=== PATIENT | male | born 1995 ===

== ENCOUNTER 2017-12-01 02:07 | Inpatient (IN) | payer MEDICAID ==
[2017-12-01 03:46] LABS: BASO % 0.2 % (0.0-2.0); EOS % 0.1 % (0.0-4.0); HEMOGLOBIN 14.4 g/dL (12.0-18.0); LYMPH # 1.2 K/uL (1.0-4.3); LYMPH % 15.9 % (20.0-40.0); MEAN CELL VOLUME 89.5 fL (80.0-94.0); MEAN CORPUSCULAR HEMOGLOBIN 31.2 pg (27.0-31.0); MEAN CORPUSCULAR HGB CONC 34.9 g/dL (33.0-37.0); MONO # 0.7 K/uL (0.0-0.8); MONO % 8.9 % (0.0-10.0); NEUT # 5.5 K/uL (1.8-7.0); NEUT % 74.9 % (50.0-75.0); NRBC % 0.1 % (0.0-2.0); RBC 4.61 Mil/uL (4.40-5.90); RED CELL DISTRIBUTION WIDTH 12.6 % (11.5-14.5); WHITE BLOOD COUNT 7.4 K/uL (4.8-10.8)
[2017-12-01 03:57] LABS: ALB/GLOB RATIO 1.4 (1.0-2.1); ALBUMIN 4.2 g/dL (3.5-5.0); ALT/SGPT 27 U/L (21-72); AST/SGOT 21 U/L (17-59); BLOOD UREA NITROGEN 13 mg/dL (9-20); CALCIUM 8.6 mg/dl (8.6-10.4); GFR AFRICAN-AMERICAN > 60; GFR NON-AFRICAN AMERICAN > 60
--- NOTE | 2017-12-01 04:19 | C.PDOC ---
History Of Present Illness <Rere Schaefer - Last Filed: 12/01/17 04:16> <Stephanie Morgan - Last Filed: 12/01/17 05:44> 22 year old male with PMHx of schizophrenia presents to the ED for evaluation of auditory hallucinations. Patient's family states he is compliant with his medications. Patient denies SI/HI, fever, chill, nausea, vomit, diarrhea. ( Rere Schaefer) History Per: Patient History/Exam Limitations: no limitations Onset/Duration Of Symptoms: Days Current Symptoms Are (Timing): Still Present Suicide/Self Injury Attempted (Context): None Modifying Factor(s): None Associated Symptoms: Paranoia. denies: Depression, Suicidal Thoughts, Suicidal Plan Involuntary Hold By: None Recent travel outside of the [place]: No Additional History Per: Patient, EMS <Rere Schaefer - Last Filed: 12/01/17 04:16> <Stephanie Morgan - Last Filed: 12/01/17 05:44> Time Seen by Provider: 12/01/17 02:32 Chief Complaint (Nursing): Psychiatric Evaluation Past Medical History Reviewed: Historical Data, Nursing Documentation, Vital Signs - Medical History PMH: Schizophrenia Denies: Diabetes, Hepatitis, HIV, HTN, Seizures, Sexually Transmitted Disease Surgical History: No Surg Hx Family History: States: Unknown Family Hx - Social History Hx Alcohol Use: No Hx Substance Use: No - Immunization History Hx Tetanus Toxoid Vaccination: No Hx Influenza Vaccination: No Hx Pneumococcal Vaccination: No <Rere Schaefer - Last Filed: 12/01/17 04:16> Vital Signs: Last Vital Signs Temp 98.1 F 12/01/17 05:43 Pulse 94 H 12/01/17 05:43 Resp 18 12/01/17 05:43 BP 148/88 12/01/17 05:43 Pulse Ox 98 12/01/17 05:43 Review Of Systems Constitutional: Negative for: Fever, Chills Cardiovascular: Negative for: Chest Pain, Palpitations Respiratory: Negative for: Cough, Shortness of Breath Gastrointestinal: Negative for: Nausea, Vomiting, Abdominal Pain Skin: Negative for: Rash Neurological: Negative for: Weakness, Numbness <Rere Schaefer - Last Filed: 12/01/17 04:16> Physical Exam - Physical Exam Appears: Non-toxic, No Acute Distress Skin: Normal Color, Warm, Dry Head: Atraumatic, Normacephalic Eye(s): bilateral: Normal Inspection Nose: No Discharge, No Deformity Oral Mucosa: Moist Neck: Normal ROM, Supple Chest: Symmetrical Cardiovascular: Rhythm Regular, No Murmur Respiratory: Normal Breath Sounds, No Rales, No Rhonchi, No Wheezing Gastrointestinal/Abdominal: Soft, No Tenderness, No Guarding, No Rebound Extremity: Normal ROM, No Tenderness, No Deformity, No Swelling <Rere Schaefer - Last Filed: 12/01/17 04:16> ED Course And Treatment - Laboratory Results Result Diagrams: 12/01/17 03:38 12/01/17 03:38 O2 Sat by Pulse Oximetry: 97 (On RA) Pulse Ox Interpretation: Normal Progress Note: Plan: -labs. -UA. Crisis evaluation done by worker for possible admission. <Rere Schaefer - Last Filed: 12/01/17 04:16> - Laboratory Results Result Diagrams: 12/01/17 03:38 12/01/17 03:38 <Stephanie Morgan - Last Filed: 12/01/17 05:44> Disposition <Rere Schaefer - Last Filed: 12/01/17 04:16> - Disposition Disposition Time: 05:44 <Stephanie Morgan - Last Filed: 12/01/17 05:44> - Disposition Disposition: HOSPITALIZED Condition: FAIR Forms: [employer] (Kazakh) - Clinical Impression Clinical Impression: Schizophrenia - PA / ENCHILADA MAKER / Resident Statement MD/DO has reviewed & agrees with the documentation as recorded. - Scribe Statement The provider has reviewed the documentation as recorded by the Scribe <Rere Schaefer - Last Filed: 12/01/17 04:16> <Stephanie Morgan - Last Filed: 12/01/17 05:44> - Scribe Statement Smith Max All medical record entries made by the Scribe were at my direction and personally dictated by me. I have reviewed the chart and agree that the record accurately reflects my personal performance of the history, physical exam, medical decision making, and the department course for this patient. I have also personally directed, reviewed, and agree with the discharge instructions and disposition. (Rere Schaefer)
[2017-12-01 04:36] LABS: BARBITURATES, UR NEGATIVE (NEGATIVE); BENZODIAZEPINES, UR NEGATIVE (NEGATIVE); OPIATES, UR NEGATIVE (NEGATIVE); PHENCYCLIDINE, UR NEGATIVE (NEGATIVE)
[2017-12-01 04:41] LABS: SPERM URINE RARE /hpf; SQUAMOUS EPITHIAL < 1 /hpf (0-5); URINE BACTERIA OCC (<OCC); URINE BILIRUBIN NEGATIVE (NEGATIVE); URINE BLOOD NEGATIVE (NEGATIVE); URINE CLARITY Hazy (Clear); URINE COLOR Amber (YELLOW); URINE GLUCOSE (UA) NORMAL (Normal); URINE LEUKOCYTE ESTERASE NEG Leu/uL (Negative); URINE NITRATE NEGATIVE (NEGATIVE); URINE PROTEIN 2+ mg/dL (NEGATIVE)
[2017-12-01 05:22] LABS: GRANULAR CAST 4 /lpf (0-1)
--- NOTE | 2017-12-01 08:00 | PCM.BM ---
<MiroslavaagustínMaceya - Last Filed: 12/01/17 07:59> Treatment assets and liabiliti Patient Assests: self-reliant, ADL independent, physically healthy, good support system, negotiates basic needs, cognitively intact - Milieu Protocol Maintain good personal hygiene: daily Encourage regular showers, other Remind patient to perform daily oral care, other Assist patient to perform ADL's (prn) Conduct patient checks and document Observation sheet: Q15 minutes Maintain personal safety: every shift Monitor environment for contraband/sharps , other Educate patient to report safety concerns to staff (prn) Medication safety: Monitor for expected outcome, potential side effects: every shift, Assess barriers to learning: every shift, Assess readiness for medication education: every shift <Chelo Mojica - Last Filed: 12/04/17 21:23> - Diagnosis (1) Schizophrenia Status: Acute Interventions: 12/04/17 21:23 * Assess/adjust medications daily and /or as needed * See patient on an individual basis 7x/week to assess status of hallucinations * Discuss risks, benefits, side effects and alternatives of medications * <Shilpa Antoine - Last Filed: 12/05/17 11:56> Family Contact Family involvement: Family/SO is involved Family contact: Patient agrees to contact Family contact name: Dionna Barr-mother Family contacted how many times per week?: 2 - Goals for Treatment Patient goals for treatment: no comment Patient's family/SO goals for treatment: "He needs to be stable before he's discharged." Discharge/Continuing Care - Education Needs Education Needs: Patient Medication, Patient Coping Skills - Discharge Discharge Criteria: Tolerates medication w/o severe side effects, Reduction of target symptoms Discharge to:: Home, With Family - Treatment Team Participation Discussed with Family/SO: Yes ("I agree with this plan.") Was Patient/Family/SO present at Treatment Team Meeting: No (no comment)
--- NOTE | 2017-12-01 20:37 | PCM.PSYCH ---
Initial Psychiatric Evaluation - Initial Psychiatric Evaluation Type of Admission: Voluntary Legal Status: Capacity Chief Complaint (in patient's own words): "People are monitoring my activities and wants to harm my family members." Patient's Reaction to Hospitalization: I'm safe History of Present Illness and Precipitating Events: Pt. is a 22 y/o male that came to ED accompanied by his mother and sister yesterday. Pt admission for decompensation of auditory hallucinations/ Schizophrenia. Pt. reported that he stop taking his medication and f/u with the psychiatrist at [facility] by himself because he was feeling better. pt. reports that he has not been sleeping for the last week and stays up in his room talking and laughing to himself. Pt. reports that he has been drinking a lot of energy and protein drinks since he started to go to the gym and feeling better. Pt also reported worsening of AH, Paranoid delusions that people are monitoring his activities and people are entering his house and wants to harm and hurt his family members. He stated that he was scared of them and wants to protect them. Pt. reports that he is enrolled at [facility], but missed his last appointment because he has been busy with school. Pt. is enrolled in a culinary program. Pt. reports that prior to that he finished an auto glass technician program and the school promised him that they were going to help him find a job. Pt. reports that he had his first hospitalization last year at [facility]. Pt. reports that he had a bad breakup three years ago. Pt. denies any drug use. Pt. reports that sometimes he feels that people are looking at him funny or that they are making comment about him. Per chart review Collateral history: Pt.'s mother reports that for the last week ; Pt. has not been sleeping at night and talks and laugh to himself Legal History: Pt. was arrested once before he wanted to work and the program refused to place pt. in a job. pt. became aggressive and was arrested by the police. Current Medications: Active Medications Generic Name Dose Route Start Last Admin Trade Name Freq PRN Reason Stop Dose Admin Hydroxyzine HCl 25 mg 12/01/17 08:07 Atarax PO TID PRN Anxiety Lamotrigine 25 mg 12/01/17 10:00 12/01/17 17:28 Lamictal PO 25 mg BID BARON Administration Pneumococcal Polyvalent Vaccine 0.5 ml 12/04/17 06:57 Pneumovax 23 Vaccine IM 12/04/17 06:58 .ONCE ONE Risperidone 1 mg 12/01/17 10:00 12/01/17 10:55 Risperdal Tab PO 1 mg DAILY BARON Administration Trazodone HCl 50 mg 12/01/17 08:06 Desyrel PO HS PRN Insomnia Past Psychiatric History - Past Psychiatric History Previous Treatment History: Inpatient Prior Professional Help: [facility] OPD Prior Psychiatric Treatment: INPATIENT ADMISSION At [facility] hospital: [facility] [place] Nature of Treatment: 2017 Explanation of prior treatment: MEDICATION MANAGEMENT History of Abuse: DENIED History of ETOH/Drug Use: IN THE PAST HE WAS SMOKING BLUNT History of Family Illness: DENIED Pertinent Medical Hx (Current Medical&Sleep Prob, Allergies): Allergies Allergy/AdvReac Type Severity Reaction Status Date / Time No Known Allergies Allergy Verified 12/01/17 02:30 Lamictal 12/01/17 Risperdal 12/01/17 NKDA Review of Systems - Review of Systems All systems: reviewed and no additional remarkable complaints except (PSYCH) - Constitutional Constitutional: UN - EENT Eyes: UNREMARKABLE Ears: UNREMARKABLE Nose/Mouth/Throat: UNREMARKABLE - Cardiovascular Cardiovascular: UNREMARKABLE - Respiratory Respiratory: UNREMARKABLE - Gastrointestinal Gastrointestinal: UNREMARKABLE - Genitourinary Genitourinary: UNREMARKABLE - Psychiatric Psychiatric: As Per HPI - Endocrine Endocrine: UNREMARKABLE - Hematologic/Lymphatic Hematologic: UNREMARKABLE Mental Status Examination - Personal Presentation Personal Presentation: Looks stated age Additional comments: CALM AND COOPERATIVE, LYING IN THE BED - Affect Affect: Blunted - Motor Activity Motor Activity: Calm - Reliability in Providing Information Reliability in Providing Information: Good - Speech Speech: Organized, Coherent - Mood Mood: Anxious - Formal Thought Process Formal Thought Process: Hallucinations, Delusions, Paranoia - Hallucinations/Delusions Hallucinations: Auditory - Obsessions/Compulsions Obsessions: None Compulsions: None - Cognitive Functions Orientation: Person, Place, Situation, Time Sensorium: Alert Attention/Concentration: Attentive Abstract Thinking: Trout Estimate of Intelligence: Average Judgement: Imparied, as evidence by: Poor judgement, Imparied, as evidence by: Lack of insight into illness - Strength & Assets Inventory Strength & Assets Inventory: Family support, Education, Skills, Interests/ hobbies, Cooperative - Limitations Limitations: Other (POOR INSIGHT) DSM 5 DX - DSM 5 DSM 5 Diagnosis: SCHIZOPHRENIA - Recommended/Plan of Treatment Treatment Recommendations and Plan of Treatment: START RISPERDAL 1 MG O BID START LAMICTAL 25 MG PO bid therapy in milieu individual and group therapy monitor vitals Prognosis: fair with the compliance with meds and treatment Discharge Plan and Discharge Criteria: please see SW note
--- NOTE | 2017-12-02 16:52 | PCM.PYCHPN ---
Psychiatric Progress Note - Psychiatric Progress Note Patient seen today, length of contact: 15 minutes Patient Chief Complaint: "I'm okay" Problems Identified/Issues Discussed: Pt was seen and evaluated. Nurse input received that he believes that his mother and niece are imposter. Pt stated that he is feeling okay. He minimized his symptoms. He reported improvement in his AH. however, he appeared internally preoccupied and responding to stimuli. He appeared paranoid. DSM 5 Symptoms Update: Schizphrenia Medication Change: Yes (increaase risperdal) Medical Record Reviewed: Yes Mental Status Examination - Cognitive Function Orientation: Person, Place, Situation, Time Memory: Intact Attention: Poor Concentration: Poor Association: Loose Fund of Knowledge: WNL Decription of patient's judgement and insights: poor/poor - Mood Mood: Anxious - Affect Affect: Blunted - Speech Speech: Soft - Formal Thought Process Formal Thought Process: Hallucinations, Delusions, Paranoia - Suicidal Ideation Suicidal Ideation: No Plan: denied - Homicidal Ideation Homicidal Ideation: No Plan: denied Goal/Treatment Plan - Goal/Treatment Plan Need for Continued Stay: Discharge may exacerbated symptoms Progress Toward Problem(s) and Goals/Treatment Plan: increase RISPERDAL 1 MG BID for psychosis Continue LAMICTAL 25 MG PO bid therapy in milieu individual and group therapy monitor vitals Estimated Date of D/C: 12/07/17 - Smoking Cessation Smoking Cessation Initiated: Yes
--- NOTE | 2017-12-03 10:21 | PCM.PYCHPN ---
Psychiatric Progress Note - Psychiatric Progress Note Patient seen today, length of contact: 15 minutes Patient Chief Complaint: I am fine.' Problems Identified/Issues Discussed: Patient seen and evaluated, chart reviewed and discussed with the nurse. Patient remained disorganized and internally preoccupied. He still reports of hearing voices and appears paranoid and delusional. He is responding to internal stimuli and as per the staff, he spent whole night talking to himself. He reports irritability and anxiety. Patient remained isolated, confined and withdrawn. Patient is compliant with medications and denies any side effects. Symptoms are improving but need more time to stabilize. Support and psychoeducation given. Medication Change: Yes (increaase risperdal, start trileptal) Medical Record Reviewed: Yes Mental Status Examination - Cognitive Function Orientation: Person, Place, Situation, Time Memory: Intact Attention: Poor Concentration: Poor Association: Loose Fund of Knowledge: WNL - Mood Mood: Anxious - Affect Affect: Blunted - Speech Speech: Soft - Formal Thought Process Formal Thought Process: Hallucinations, Delusions, Paranoia, Loosening of associations - Suicidal Ideation Suicidal Ideation: No - Homicidal Ideation Homicidal Ideation: No Goal/Treatment Plan - Goal/Treatment Plan Need for Continued Stay: Discharge may exacerbated symptoms Progress Toward Problem(s) and Goals/Treatment Plan: Schizophrenia paranoid type continuous CBT Psychoeducation Supportive therapy, group therapy, individual therapy Risperdal 2 mg PO BID Neurontin 100 mg by mouth 3 times a day Trazodone 50 mg by mouth daily at bedtime D/C Lamictal Start Trileptal 300 mg PO BID Estimated Date of D/C: 12/07/17 - Smoking Cessation Smoking Cessation Initiated: No
[2017-12-03] MEDS: Aluminum Hydroxide/Magnesium Hydroxide Susp (30 mL) PO PRN (18:36)
--- NOTE | 2017-12-04 10:23 | PCM.PYCHPN ---
Psychiatric Progress Note - Psychiatric Progress Note Patient seen today, length of contact: 15 minutes Patient Chief Complaint: I am fine.' Problems Identified/Issues Discussed: Patient seen and evaluated, chart reviewed and discussed with the nurse. As per the staff, he still reports of hearing voices and appears paranoid and delusional. Patient remained disorganized and internally preoccupied. He is responding to internal stimuli and as per the staff, he spent whole night talking to himself. He reports irritability and anxiety. Patient remained isolated, confined and withdrawn. Patient is compliant with medications and denies any side effects. Symptoms are improving but need more time to stabilize. Support and psychoeducation given. Medication Change: Yes (increaase risperdal, start trileptal) Medical Record Reviewed: Yes Mental Status Examination - Cognitive Function Orientation: Person, Place, Situation, Time Memory: Intact Attention: Poor Concentration: Poor Association: Loose Fund of Knowledge: WNL - Mood Mood: Anxious - Affect Affect: Blunted - Speech Speech: Soft - Formal Thought Process Formal Thought Process: Hallucinations, Delusions, Paranoia, Loosening of associations - Suicidal Ideation Suicidal Ideation: No - Homicidal Ideation Homicidal Ideation: No Goal/Treatment Plan - Goal/Treatment Plan Need for Continued Stay: Discharge may exacerbated symptoms Progress Toward Problem(s) and Goals/Treatment Plan: Schizophrenia paranoid type continuous CBT Psychoeducation Supportive therapy, group therapy, individual therapy Risperdal 2 mg PO BID Neurontin 100 mg by mouth 3 times a day Trazodone 50 mg by mouth daily at bedtime D/C Lamictal Start Trileptal 300 mg PO BID Estimated Date of D/C: 12/07/17
[2017-12-04] MEDS ORDERED: Pneumococcal 23-Valent Vaccine IM ONE (10:57)
[2017-12-04] MEDS ORDERED: Influenza Vaccine 60 mcg/0.5 mL SYR (4YR UP) IM ONE (10:57)
[2017-12-04] MEDS: Aluminum Hydroxide/Magnesium Hydroxide Susp (30 mL) PO PRN (21:23)
--- NOTE | 2017-12-05 11:40 | PCM.PYCHPN ---
Psychiatric Progress Note - Psychiatric Progress Note Patient seen today, length of contact: 15 minutes Patient Chief Complaint: "I'm good." Problems Identified/Issues Discussed: Patient was seen and examined at bedside, chart was reviewed and discussed with staff. Patient denies any complaints. He reports that he is doing well and denies hearing voices, auditory hallucinations. He reports that he is taking his medications even though thats not what I normally take at home. Patient appears disheveled and maintains intense eye contact during encounter. The patient responds to questions in a short abrupt and seemingly rehearsed manner. His thoughts are goal directed. He reports his mood has good. His affect is blunted. He is seen punching at the air in the hallway and responding to internal stimuli. Patient is compliant with medications and denies any side effects. Symptoms are improving but need more time to stabilize. Support and psychoeducation given. Medication Change: Yes (increaase risperdal, start trileptal) Medical Record Reviewed: Yes Mental Status Examination - Cognitive Function Orientation: Person, Place, Situation, Time Memory: Intact Attention: Poor Concentration: Poor Association: Loose Fund of Knowledge: WNL - Mood Mood: Anxious - Affect Affect: Blunted - Speech Speech: Soft - Language Language: Word Retrieval - Formal Thought Process Formal Thought Process: Hallucinations, Delusions, Paranoia, Loosening of associations - Suicidal Ideation Suicidal Ideation: No - Homicidal Ideation Homicidal Ideation: No Goal/Treatment Plan - Goal/Treatment Plan Need for Continued Stay: Discharge may exacerbated symptoms, Severe functional impairment Progress Toward Problem(s) and Goals/Treatment Plan: Schizophrenia paranoid type continuous CBT Psychoeducation Supportive therapy, group therapy, individual therapy Risperdal 2 mg PO BID Neurontin 100 mg by mouth 3 times a day Trazodone 50 mg by mouth daily at bedtime D/C Lamictal Start Trileptal 300 mg PO BID Estimated Date of D/C: 12/07/17
--- NOTE | 2017-12-06 12:28 | PCM.PSYCH ---
Initial Psychiatric Evaluation - Initial Psychiatric Evaluation Type of Admission: Voluntary Legal Status: Capacity Chief Complaint (in patient's own words): "I'm fine" Patient's Reaction to Hospitalization: Patient was seen and examined at bedside, chart was reviewed and discussed with staff. Patient reports that he is doing fine and denies any complaints. He denies hearing voices and visual hallucinations. When asked if he remembers why he came to the hospital he said "because of the incarn[place], imposters are hurting my family members and they are trying to reincarnate themselves into my family members to hurt me." Patient appears disheveled and maintains eye contact during encounter. The patient responds to questions in a short manner. His thoughts are goal directed. He reports his mood has good. His affect is blunted. He is still observed to be responding to internal stimuli. Current Medications: Active Medications Generic Name Dose Route Start Last Admin Trade Name Freq PRN Reason Stop Dose Admin Al Hydrox/Mg Hydrox/Simethicone 30 ml 12/03/17 18:17 12/04/17 21:23 Maalox 30 Ml PO 30 ml Q6 PRN Administration Indigestion / Heartburn Hydroxyzine HCl 25 mg 12/01/17 08:07 12/05/17 10:24 Atarax PO 25 mg TID PRN Administration Anxiety Levetiracetam 250 mg 12/04/17 10:00 12/06/17 10:04 Keppra PO 250 mg BID BARON Administration Risperidone 2 mg 12/04/17 10:15 12/06/17 10:04 Risperdal Tab PO 2 mg BID BARON Administration Trazodone HCl 50 mg 12/01/17 08:06 12/04/17 21:23 Desyrel PO 50 mg HS PRN Administration Insomnia Past Psychiatric History - Past Psychiatric History Previous Treatment History: Inpatient Prior Professional Help: CRC OPD Prior Psychiatric Treatment: INPATIENT ADMISS[place] At [facility] [place] [facility] [place] Treatment: 2016 Explanation of prior treatment: MEDICATION MANAGEMENT Pertinent Medical Hx (Current Medical&Sleep Prob, Allergies): Allergies Allergy/AdvReac Type Severity Reaction Status Date / Time No Known Allergies Allergy Verified 12/01/17 02:30 Lamictal 12/01/17 Risperdal 12/01/17 Review of Systems - Neurological Neurological: UNREMARKABLE - Psychiatric Psychiatric: Paranoia. absent: Auditory Hallucinations, Visual Hallucinations Mental Status Examination - Personal Presentation Personal Presentation: Looks stated age - Affect Affect: Constricted, Blunted - Motor Activity Motor Activity: Calm - Reliability in Providing Information Reliability in Providing Information: Fair - Speech Speech: Disorganized - Mood Mood: Neutral - Formal Thought Process Formal Thought Process: Delusions, Paranoia - Hallucinations/Delusions Delusions: Persecution - Obsessions/Compulsions Obsessions: None Compulsions: None - Cognitive Functions Orientation: Person, Place, Situation, Time Sensorium: Alert Attention/Concentration: Easily distracted Estimate of Intelligence: Average Judgement: Imparied, as evidence by: Poor judgement, Imparied, as evidence by: Lack of insight into illness Memory: Recent intact, as evidence by: Ability to recall events of the day, Remote intact, as evidenced by: Abilit to recall sig. life events - Strength & Assets Inventory Strength & Assets Inventory: Family support DSM 5 DX - DSM 5 DSM 5 Diagnosis: Schizophrenia - Recommended/Plan of Treatment Treatment Recommendations and Plan of Treatment: Schizophrenia paranoid type continuous CBT Psychoeducation Supportive therapy, group therapy, individual therapy Risperdal 2 mg PO BID Neurontin 100 mg by mouth 3 times a day Trazodone 50 mg by mouth daily at bedtime D/C Lamictal Start Trileptal 300 mg PO BID - Smoking Cessation Smoking Cessation Initiated: No Reason for not providing: pt does not smoke
--- NOTE | 2017-12-06 12:33 | PCM.PYCHPN ---
Psychiatric Progress Note - Psychiatric Progress Note Patient seen today, length of contact: 15 minutes Patient Chief Complaint: "I'm fine" Problems Identified/Issues Discussed: Patient was seen and examined at bedside, chart was reviewed and discussed with staff. Patient reports some improvement in the voices and improvement in the voices and visual hallucinations. When asked if he remembers why he came to the hospital he said "because of the incarnation, imposters are hurting my family members and they are trying to reincarnate themselves into my family members to hurt me." Patient appears disheveled and maintains eye contact during encounter. The patient responds to questions in a short manner. His thoughts are goal directed. He reports his mood has good. His affect is blunted. He is still observed to be responding to internal stimuli. Patient is compliant with medications and denies any side effects. Symptoms are improving but need more time to stabilize. Support and psychoeducation given. Medication Change: Yes (increase risperdal) Medical Record Reviewed: Yes Mental Status Examination - Cognitive Function Orientation: Person, Place, Situation, Time Memory: Intact Attention: Poor Concentration: Poor Association: Loose Fund of Knowledge: WNL - Mood Mood: Anxious - Affect Affect: Blunted - Speech Speech: Soft - Language Language: Word Retrieval - Formal Thought Process Formal Thought Process: Hallucinations, Delusions, Paranoia, Loosening of associations - Suicidal Ideation Suicidal Ideation: No - Homicidal Ideation Homicidal Ideation: No Goal/Treatment Plan - Goal/Treatment Plan Need for Continued Stay: Discharge may exacerbated symptoms, Severe functional impairment Progress Toward Problem(s) and Goals/Treatment Plan: Schizophrenia paranoid type continuous CBT Psychoeducation Supportive therapy, group therapy, individual therapy Risperdal 4 mg PO qhs Trazodone 50 mg by mouth daily at bedtime Keppra 250 mg PO BID Estimated Date of D/C: 12/07/17 - Smoking Cessation Smoking Cessation Initiated: No Reason for not providing: pt does not smoke
[2017-12-06] MEDS ORDERED: Simethicone 80 mg Chewtab PO PRN (20:18)
[2017-12-07] MEDS ORDERED: Simethicone 80 mg Chewtab PO SCH
--- NOTE | 2017-12-08 09:02 | PCM.PYCHPN ---
Psychiatric Progress Note - Psychiatric Progress Note Patient seen today, length of contact: 15 minutes Patient Chief Complaint: "I'm fine" Problems Identified/Issues Discussed: Patient was seen and examined at bedside, chart was reviewed and discussed with staff. As per the staff pt started coming out of his room. Patient reports some improvement in the voices and improvement in the voices and visual hallucinations. He appears kempt and he started taking care of his hygiene. His thoughts are goal directed. He reports his mood is good. His affect is blunted. He appears less paranoid and less delusional compared to before. Patient is compliant with medications and denies any side effects. Symptoms are improving but need more time to stabilize. Support and psychoeducation given. Medication Change: Yes (increase risperdal, start trileptal) Medical Record Reviewed: Yes Mental Status Examination - Cognitive Function Orientation: Person, Place, Situation, Time Memory: Intact Attention: WNL Concentration: Poor Association: Loose Fund of Knowledge: WNL - Mood Mood: Anxious - Affect Affect: Blunted - Speech Speech: Soft - Language Language: Word Retrieval - Formal Thought Process Formal Thought Process: Hallucinations, Paranoia - Suicidal Ideation Suicidal Ideation: No - Homicidal Ideation Homicidal Ideation: No Goal/Treatment Plan - Goal/Treatment Plan Need for Continued Stay: Discharge may exacerbated symptoms, Severe functional impairment Progress Toward Problem(s) and Goals/Treatment Plan: Schizophrenia paranoid type continuous CBT Psychoeducation Supportive therapy, group therapy, individual therapy Risperdal 4 mg PO QHS Risperdal 2 mg PO QAM Cogentn 1 mg PO BID Trazodone 50 mg by mouth daily at bedtime Keppra 250 mg PO BID Estimated Date of D/C: 12/07/17 - Smoking Cessation Smoking Cessation Initiated: No
--- NOTE | 2017-12-08 19:18 | PCM.PYCHPN ---
Psychiatric Progress Note - Psychiatric Progress Note Patient seen today, length of contact: 15 minutes Patient Chief Complaint: I'm feeling much better. Problems Identified/Issues Discussed: Patient seen, chart reviewed, case discussed with the staff. Issues related to illness and treatment were discussed with the patient. Reported compliant with treatment with no adverse affects. Tolerating treatment very well. Patient reported feeling better with the treatment. But still appeared internally preoccupied, paranoid, flat affect. Patient still believes that some people who they come back to him requiring the shapes off his family members including his mother and sister. Patient reported that when those impostors come in front of him his heart starts racing and he knows from there that there impostors but when he is real family members calm his heart beats normally. At the time of evaluation, patient was awake alert oriented 3, no suicidal ideations or homicidal ideations. Patient needs more time for stabilization. Aftercare discussed with the patient. Medical Problems: None reported Diagnostic Results: Reviewed DSM 5 Symptoms Update: Some improvement with treatment Medication Change: No Medical Record Reviewed: Yes Mental Status Examination - Cognitive Function Orientation: Person, Place, Situation, Time Memory: Intact Attention: WNL Concentration: WNL Association: [facility] Fund of Knowledge: [facility] Decription of patient's judgement and insights: Fair - Mood Mood: Anxious - Affect Affect: Flat - Speech Speech: Soft - Formal Thought Process Formal Thought Process: Paranoia, Loosening of associations, Flight of ideas - Suicidal Ideation Suicidal Ideation: No - Homicidal Ideation Homicidal Ideation: No Goal/Treatment Plan - Goal/Treatment Plan Need for Continued Stay: Remain at risks for inpatient hospitalization, Discharge may exacerbated symptoms, Severe functional impairment Progress Toward Problem(s) and Goals/Treatment Plan: Patient education Supportive therapy Continue treatment as before We will go back to [facility] after discharge from the hospital for follow-up care Estimated Date of D/C: 12/07/17 - Smoking Cessation Smoking Cessation Initiated: No
[2017-12-09] MEDS: Aluminum Hydroxide/Magnesium Hydroxide Susp (30 mL) PO PRN (18:38)
--- NOTE | 2017-12-09 18:41 | PCM.PYCHPN ---
Psychiatric Progress Note - Psychiatric Progress Note Patient seen today, length of contact: 15 minutes Patient Chief Complaint: I'm feeling much better. Problems Identified/Issues Discussed: Patient seen, chart reviewed, case discussed with the staff. Issues related to illness and treatment were discussed with the patient. Reported compliant with treatment with no adverse affects. Tolerating treatment very well. Patient reported feeling better with the treatment. But still appeared internally preoccupied, paranoid, flat affect. Patient still believes that some people who they come back to him requiring the shapes off his family members including his mother and sister. Patient reported that when those impostors come in front of him his heart starts racing and he knows from there that these are impostors but when they're is real family members, he is calm and his heart beats normally. At the time of evaluation, patient was awake alert oriented 3, no suicidal ideations or homicidal ideations. Patient needs more time for stabilization. Aftercare discussed with the patient. Medical Problems: None reported Diagnostic Results: Reviewed DSM 5 Symptoms Update: Some improvement with treatment Medication Change: No Medical Record Reviewed: Yes Mental Status Examination - Cognitive Function Orientation: Person, Place, Situation, Time Memory: Intact Attention: WNL Concentration: WNL Association: WN Fund of Knowledge: [facility] Decription of patient's judgement and insights: Fair - Mood Mood: Anxious - Affect Affect: Flat - Speech Speech: Soft - Language Language: Word Retrieval - Formal Thought Process Formal Thought Process: Paranoia, Loosening of associations, Flight of ideas - Suicidal Ideation Suicidal Ideation: No - Homicidal Ideation Homicidal Ideation: No Goal/Treatment Plan - Goal/Treatment Plan Need for Continued Stay: Remain at risks for inpatient hospitalization, Discharge may exacerbated symptoms, Severe functional impairment Progress Toward Problem(s) and Goals/Treatment Plan: Patient education Supportive therapy Continue treatment as before We will go back to [facility] after discharge from the hospital for follow-up care Estimated Date of D/C: 12/10/17 - Smoking Cessation Smoking Cessation Initiated: No
--- NOTE | 2017-12-11 10:35 | PCM.PYCHPN ---
Psychiatric Progress Note - Psychiatric Progress Note Patient seen today, length of contact: 15 minutes Patient Chief Complaint: "I'm fine" Problems Identified/Issues Discussed: Patient was seen and examined at bedside, chart was reviewed and discussed with staff. As per the staff pt started coming out of his room. Patient reports some improvement in the voices and improvement in the voices and visual hallucinations. He appears kempt and he started taking care of his hygiene. His thoughts are goal directed. He reports his mood is good. His affect is blunted. He appears less paranoid and less delusional compared to before. Patient is compliant with medications and denies any side effects. Symptoms are improving but need more time to stabilize. Support and psychoeducation given. Medication Change: Yes (stop seroquel, start prolixin) Medical Record Reviewed: Yes Mental Status Examination - Cognitive Function Orientation: Person, Place, Situation, Time Memory: Intact Attention: WNL Concentration: Poor Association: Loose Fund of Knowledge: Poor - Mood Mood: Anxious - Affect Affect: Flat - Speech Speech: Soft - Language Language: Word Retrieval - Formal Thought Process Formal Thought Process: Delusions, Paranoia, Loosening of associations, Flight of ideas - Suicidal Ideation Suicidal Ideation: No - Homicidal Ideation Homicidal Ideation: No Goal/Treatment Plan - Goal/Treatment Plan Need for Continued Stay: Remain at risks for inpatient hospitalization, Discharge may exacerbated symptoms, Severe functional impairment Progress Toward Problem(s) and Goals/Treatment Plan: Schizophrenia paranoid type continuous CBT Psychoeducation Supportive therapy, group therapy, individual therapy Risperdal 4 mg PO QHS Risperdal 2 mg PO QAM Cogentn 1 mg PO BID Trazodone 50 mg by mouth daily at bedtime Keppra 250 mg PO BID Seroquel 50 mg PO BID Increase Prolixin 10 mg PO BID Estimated Date of D/C: 12/10/17
--- NOTE | 2017-12-12 10:01 | PCM.PYCHPN ---
Psychiatric Progress Note - Psychiatric Progress Note Patient seen today, length of contact: 15 minutes Patient Chief Complaint: "I'm fine" Problems Identified/Issues Discussed: Patient was seen and examined at bedside, chart was reviewed and discussed with staff. As per the staff pt started coming out of his room. Patient reports some improvement in the voices and improvement in the voices and visual hallucinations. He appears kempt and he started taking care of his hygiene. His thoughts are goal directed. He reports his mood is good. His affect is blunted. He appears less paranoid and less delusional compared to before. Patient is compliant with medications and denies any side effects. Symptoms are improving but need more time to stabilize. Support and psychoeducation given. Medication Change: Yes (increase prolixin) Medical Record Reviewed: Yes Mental Status Examination - Cognitive Function Orientation: Person, Place, Situation, Time Memory: Intact Attention: WNL Concentration: Poor Association: Loose Fund of Knowledge: Poor - Mood Mood: Anxious - Affect Affect: Flat - Speech Speech: Soft - Language Language: Word Retrieval - Formal Thought Process Formal Thought Process: Delusions, Paranoia, Loosening of associations, Flight of ideas - Suicidal Ideation Suicidal Ideation: No - Homicidal Ideation Homicidal Ideation: No Goal/Treatment Plan - Goal/Treatment Plan Need for Continued Stay: Remain at risks for inpatient hospitalization, Discharge may exacerbated symptoms, Severe functional impairment Progress Toward Problem(s) and Goals/Treatment Plan: Schizophrenia paranoid type continuous CBT Psychoeducation Supportive therapy, group therapy, individual therapy Risperdal 4 mg PO QHS Risperdal 2 mg PO QAM Cogentn 1 mg PO BID Trazodone 50 mg by mouth daily at bedtime Keppra 250 mg PO BID Seroquel 50 mg PO BID Estimated Date of D/C: 12/10/17
--- NOTE | 2017-12-12 10:16 | PCM.BM ---
<Shilpa Antoine - Last Filed: 12/12/17 10:16> Treatment assets and liabiliti Patient Assests: self-reliant, ADL independent, physically healthy, good support system, negotiates basic needs, cognitively intact - Milieu Protocol Maintain good personal hygiene: daily Encourage regular showers, other Remind patient to perform daily oral care, other Assist patient to perform ADL's (prn) Conduct patient checks and document Observation sheet: Q15 minutes Maintain personal safety: every shift Monitor environment for contraband/sharps , other Educate patient to report safety concerns to staff (prn) Medication safety: Monitor for expected outcome, potential side effects: every shift, Assess barriers to learning: every shift, Assess readiness for medication education: every shift Milieu Narrative: Schizophrenia paranoid type continuous CBT Psychoeducation Supportive therapy, group therapy, individual therapy Risperdal 4 mg PO QHS Risperdal 2 mg PO QAM Cogentn 1 mg PO BID Trazodone 50 mg by mouth daily at bedtime Keppra 250 mg PO BID Seroquel 50 mg PO BID Increase Prolixin 10 mg PO BID Family Contact Family involvement: Family/SO is involved Family contact: Patient agrees to contact Family contact name: Dionna Barr-mother Family contacted how many times per week?: 2 - Goals for Treatment Patient goals for treatment: no comment Patient's family/SO goals for treatment: "He needs to be stable before he's discharged." Discharge/Continuing Care - Education Needs Education Needs: Patient Medication, Patient Coping Skills - Discharge Discharge Criteria: Tolerates medication w/o severe side effects, Reduction of target symptoms Discharge to:: Home, With Family - Treatment Team Participation Patient/Family/SO Statement: Schizophrenia paranoid type continuous CBT Psychoeducation Supportive therapy, group therapy, individual therapy Risperdal 4 mg PO QHS Risperdal 2 mg PO QAM Cogentn 1 mg PO BID Trazodone 50 mg by mouth daily at bedtime Keppra 250 mg PO BID Seroquel 50 mg PO BID Increase Prolixin 10 mg PO BID Discussed with Family/SO: Yes ("I agree with this plan.") Was Patient/Family/SO present at Treatment Team Meeting: No (no comment) Treatment Plan Review - Discharge / Continuing Care Discharge to:: Home, With Family Behavioral Health Services: Partial hospital Health Needs: Medications/Rx, Alcohol/Drug treatment <Chelo Mojica - Last Filed: 12/12/17 13:48> - Diagnosis (1) Schizophrenia Status: Acute Interventions: 12/12/17 13:48 * Assess/adjust medications daily and /or as needed * See patient on an individual basis 7x/week to assess status of hallucinations * Discuss risks, benefits, side effects and alternatives of medications * <Jennifer Suero - Last Filed: 12/12/17 14:07> - Milieu Protocol Maintain good personal hygiene: every shift Encourage regular showers, every shift Remind patient to perform daily oral care, every shift Assist patient to perform ADL's Maintain personal safety: every shift Educate patient to report safety concerns to staff, every shift Monitor environment for contraband/sharps Medication safety: Monitor for expected outcome, potential side effects: every shift, Assess barriers to learning: every shift, Assess readiness for medication education: every shift Treatment Plan Review - Problem Paranoid Date Initiated: 12/01/17 Progress toward outcomes: unchanged
[2017-12-12 16:02] LABS: URINE BILIRUBIN NEGATIVE (NEGATIVE); URINE BLOOD NEGATIVE (NEGATIVE); URINE CLARITY Clear (Clear); URINE COLOR Colorless (YELLOW); URINE GLUCOSE (UA) NORMAL (Normal); URINE LEUKOCYTE ESTERASE NEG Leu/uL (Negative); URINE NITRATE NEGATIVE (NEGATIVE); URINE PROTEIN NEGATIVE (NEGATIVE); URINE UROBILINOGEN NORMAL mg/dL (0.2-1.0)
[2017-12-12 17:21] LABS: HEMOGLOBIN 14.1 g/dL (12.0-18.0); MEAN CELL VOLUME 90.3 fL (80.0-94.0); MEAN CORPUSCULAR HEMOGLOBIN 31.4 pg (27.0-31.0); MEAN CORPUSCULAR HGB CONC 34.7 g/dL (33.0-37.0); MEAN PLATELET VOLUME 8.8 fL (7.2-11.7); RBC 4.49 Mil/uL (4.40-5.90); RED CELL DISTRIBUTION WIDTH 12.7 % (11.5-14.5); WHITE BLOOD COUNT 6.3 K/uL (4.8-10.8)
[2017-12-12 17:40] LABS: BLOOD UREA NITROGEN 14 mg/dL (9-20); GFR AFRICAN-AMERICAN > 60; GFR NON-AFRICAN AMERICAN > 60
--- NOTE | 2017-12-13 13:43 | PCM.PYCHPN ---
Psychiatric Progress Note - Psychiatric Progress Note Patient seen today, length of contact: 16 minutes Patient Chief Complaint: "I'm fine and want to go back to school" Problems Identified/Issues Discussed: Patient was seen and examined at bedside, chart was reviewed and discussed with staff. As per the staff pt started coming out of his room. Patient denying hearing voices and seeing visual hallucinations. He appears kempt and he continues taking care of his hygiene. His thoughts are goal directed. He reports his mood is good. His affect is blunted. He appears less paranoid and less delusional compared to before. He was seen sitting in the common room with his head down in his arms covered by a towel and listening to the radio. When asked about who he has been seen talking to, he states that he has a lot of memories that he reflects on. When asked to clarify which memories, he states "memories of high school and playing football, when times were good". Patient is compliant with medications and denies any side effects. Symptoms are improving but need more time to stabilize. Support and psychoeducation given. Medication Change: Yes (increase prolixin) Medical Record Reviewed: Yes Mental Status Examination - Cognitive Function Orientation: Person, Place, Situation, Time Memory: Intact Attention: WNL Concentration: Poor Association: Loose Fund of Knowledge: Poor - Mood Mood: Anxious - Affect Affect: Blunted, Flat - Speech Speech: Soft - Language Language: Word Retrieval - Formal Thought Process Formal Thought Process: Delusions, Paranoia, Loosening of associations, Flight of ideas - Suicidal Ideation Suicidal Ideation: No - Homicidal Ideation Homicidal Ideation: No Goal/Treatment Plan - Goal/Treatment Plan Need for Continued Stay: Remain at risks for inpatient hospitalization, Discharge may exacerbated symptoms, Severe functional impairment Progress Toward Problem(s) and Goals/Treatment Plan: Schizophrenia paranoid type continuous CBT Psychoeducation Supportive therapy, group therapy, individual therapy Risperdal 4 mg PO QHS Risperdal 2 mg PO QAM Cogentn 1 mg PO BID Trazodone 50 mg by mouth daily at bedtime Keppra 250 mg PO BID Seroquel 50 mg PO BID Increase Prolixin 10 mg PO BID Estimated Date of D/C: 12/17/17 - Smoking Cessation Smoking Cessation Initiated: No
--- NOTE | 2017-12-13 15:48 | RAD ---
HISTORY: Rule out active disease COMPARISON: No prior. FINDINGS: LUNGS: No active pulmonary disease. PLEURA: No significant pleural effusion identified, no pneumothorax apparent. CARDIOVASCULAR: Normal. OSSEOUS STRUCTURES: No significant abnormalities. VISUALIZED UPPER ABDOMEN: Normal. OTHER FINDINGS: None. IMPRESSION: No active disease.
--- NOTE | 2017-12-14 11:00 | PCM.PYCHPN ---
Psychiatric Progress Note - Psychiatric Progress Note Patient seen today, length of contact: 16 minutes Patient Chief Complaint: "I'm fine" Problems Identified/Issues Discussed: Patient was seen and examined at bedside, chart was reviewed and discussed with staff. As per the staff pt started coming out of his room. Patient denying hearing voices and seeing visual hallucinations. He appears kempt and he continues taking care of his hygiene. His thoughts are goal directed. He reports his mood is good. His affect is blunted. He was seen laughing to himself in the hallway. He was then seen sitting in the common room playing games with the other guests. Patient is compliant with medications and denies any side effects. Symptoms are improving but need more time to stabilize. Support and psychoeducation given. Medication Change: Yes (increase prolixin) Medical Record Reviewed: Yes Mental Status Examination - Cognitive Function Orientation: Person, Place, Situation, Time Memory: Intact Attention: WNL Concentration: Poor Association: Loose Fund of Knowledge: Poor - Mood Mood: Anxious - Affect Affect: Blunted, Flat - Speech Speech: Soft - Language Language: Word Retrieval - Formal Thought Process Formal Thought Process: Delusions, Paranoia, Loosening of associations, Flight of ideas - Suicidal Ideation Suicidal Ideation: No - Homicidal Ideation Homicidal Ideation: No Goal/Treatment Plan - Goal/Treatment Plan Need for Continued Stay: Remain at risks for inpatient hospitalization, Discharge may exacerbated symptoms, Severe functional impairment Progress Toward Problem(s) and Goals/Treatment Plan: Schizophrenia paranoid type continuous CBT Psychoeducation Supportive therapy, group therapy, individual therapy Risperdal 4 mg PO QHS Risperdal 2 mg PO QAM Cogentn 1 mg PO BID Trazodone 50 mg by mouth daily at bedtime Keppra 250 mg PO BID Seroquel 50 mg PO BID Increase Prolixin 10 mg PO BID Estimated Date of D/C: 12/17/17
[2017-12-16 05:57] VITALS: O2SAT 99
--- NOTE | 2017-12-17 10:26 | PCM.PYCHPN ---
Psychiatric Progress Note - Psychiatric Progress Note Patient seen today, length of contact: 16 minutes Patient Chief Complaint: "I'm fine" Problems Identified/Issues Discussed: Patient was seen and examined at bedside, chart was reviewed and discussed with staff. As per the staff pt started coming out of his room. Patient denying hearing voices and seeing visual hallucinations. He appears kempt and he continues taking care of his hygiene. His thoughts are goal directed. He reports his mood is good. His affect is blunted. He was seen laughing to himself in the hallway which he tries to hide when engaged during one of these episodes. He was then seen sitting in the common room playing games with the other guests. Patient is compliant with medications and denies any side effects. Symptoms are improving but need more time to stabilize. Support and psychoeducation given. Medication Change: Yes (increase prolixin) Medical Record Reviewed: Yes Mental Status Examination - Cognitive Function Orientation: Person, Place, Situation, Time Memory: Intact Attention: WNL Concentration: Poor Association: Loose Fund of Knowledge: Poor - Mood Mood: Anxious - Affect Affect: Blunted, Flat - Speech Speech: Soft - Language Language: Word Retrieval - Formal Thought Process Formal Thought Process: Delusions, Paranoia, Loosening of associations, Flight of ideas - Suicidal Ideation Suicidal Ideation: No - Homicidal Ideation Homicidal Ideation: No Goal/Treatment Plan - Goal/Treatment Plan Need for Continued Stay: Remain at risks for inpatient hospitalization, Discharge may exacerbated symptoms, Severe functional impairment Progress Toward Problem(s) and Goals/Treatment Plan: Schizophrenia paranoid type continuous CBT Psychoeducation Supportive therapy, group therapy, individual therapy Risperdal 4 mg PO QHS Risperdal 2 mg PO QAM Cogentn 1 mg PO BID Trazodone 50 mg by mouth daily at bedtime Keppra 250 mg PO BID Seroquel 50 mg PO BID Increase Prolixin 10 mg PO BID Estimated Date of D/C: 12/17/17
[2017-12-18 09:38] VITALS: TEMP 97.9
[2017-12-19 17:43] VITALS: BP 126/87; PULSE 74; RESP 17
--- NOTE | 2017-12-20 10:49 | PCM.PYCHDC ---
Mental Status Examination - Mental Status Examination Orientation: Person, Place, Situation, Time Memory: Intact Mood: Anxious Affect: Broad, Blunted Speech: Soft Attention: Poor Concentration: Poor Association: Loose Fund of Knowledge: Poor Formal Thought Process: Hallucinations, Delusions, Paranoia, Loosening of associations Description of patient's judgement and insight: impaired Psychotic Thoughts and Behaviors: Reports AVH Suicidal Ideation: No Current Homicidal Ideation?: No Discharge Summary - Discharge Note Psychiatric History (includes Medical, Family, Personal Hx): 2017 Consultations:: List each consultation separately and include: 1. Reason for request. 2. Findings. 3. Follow-up Summary of Hospital Course include:: 1. Description of specific treatment plan utilized for patients during their course of treatmen. 2. Summarize the time- course for resolution of acute symptoms and/or regressed behaviors. 3. Describe issues identified and worked on during hospitalization. 4. Describe medication utilized. 5. Describe medical problems identified and treated. 6. Reassessment of suicide risk - Diagnosis (1) Schizophrenia Status: Acute - Final Diagnosis (DSM 5) Condition upon Discharge: GOOD Disposition: DISCHARGE TO PSYCH HOSPITAL Follow-up Treatment Plan: Schizophrenia paranoid type continuous CBT Psychoeducation Supportive therapy, group therapy, individual therapy Risperdal 4 mg PO QHS Risperdal 2 mg PO QAM Cogentn 1 mg PO BID Trazodone 50 mg by mouth daily at bedtime Keppra 250 mg PO BID Seroquel 50 mg PO BID Increase Prolixin 10 mg PO BID Prescriptions/Medication Reconciliation: Benztropine [Cogentin] 1 mg PO BID #60 tab fluPHENAZine [Prolixin] 10 mg PO BID #60 tab levETIRAcetam [Keppra] 250 mg PO BID #60 tab risperiDONE [RisperDAL Tab] 2 mg PO DAILY #30 tab risperiDONE [RisperDAL Tab] 4 mg PO QPM #30 tab traZODone [Desyrel] 50 mg PO HS #30 tab
== END 2017-12-20 01:00 | DRG 430 ==
LOC: C.ER 02:07 → C.9E 05:34 → C.5E 06:01
PROVIDERS: ADMIT Psychiatry & Neurology Psychiatry; ATTEND Psychiatry & Neurology Psychiatry
DX: F20.0 Paranoid schizophrenia (principal)

== ENCOUNTER 2018-01-03 08:06 | Emergency (ER) | payer MEDICAID ==
[2018-01-03 08:38] VITALS: BMI 24.3
[2018-01-03 09:15] LABS: BASO % 0.7 % (0.0-2.0); EOS % 0.1 % (0.0-4.0); HEMOGLOBIN 15.1 g/dL (12.0-18.0); LYMPH # 1.4 K/uL (1.0-4.3); LYMPH % 22.5 % (20.0-40.0); MEAN CELL VOLUME 89.4 fL (80.0-94.0); MEAN CORPUSCULAR HEMOGLOBIN 31.2 pg (27.0-31.0); MEAN CORPUSCULAR HGB CONC 34.9 g/dL (33.0-37.0); MEAN PLATELET VOLUME 8.5 fL (7.2-11.7); MONO # 0.5 K/uL (0.0-0.8); MONO % 7.8 % (0.0-10.0); NEUT # 4.4 K/uL (1.8-7.0); NEUT % 68.9 % (50.0-75.0); RBC 4.83 Mil/uL (4.40-5.90); RED CELL DISTRIBUTION WIDTH 12.3 % (11.5-14.5); WHITE BLOOD COUNT 6.3 K/uL (4.8-10.8)
--- NOTE | 2018-01-03 09:41 | C.PDOC ---
History Of Present Illness <Rosa Perdomo - Last Filed: 01/03/18 18:45> <Penny Means - Last Filed: 01/04/18 09:58> 22 y/o male with history of Schizophrenia brought to ED by BLS after mother called for patient "doesn't feel right". As per mother patient had been missing since last night and arrived home this morning. Mother states patient is not compliant with medications. At ED patient is awake and alert with racing thoughts. No other complaints at this time. (Rosa Perdomo) History Per: EMS, Family History/Exam Limitations: no limitations Onset/Duration Of Symptoms: Days Current Symptoms Are (Timing): Still Present Suicide/Self Injury Attempted (Context): None <Rosa Perdomo - Last Filed: 01/03/18 18:45> <Penny Means - Last Filed: 01/04/18 09:58> Time Seen by Provider: 01/03/18 08:09 Chief Complaint (Nursing): Psychiatric Evaluation Past Medical History Reviewed: Historical Data, Nursing Documentation, Vital Signs - Medical History PMH: Schizophrenia ("as per previous triage") Surgical History: No Surg Hx Family History: States: No Known Family Hx - Social History Hx Alcohol Use: No Hx Substance Use: No - Immunization History Hx Tetanus Toxoid Vaccination: No Hx Influenza Vaccination: No Hx Pneumococcal Vaccination: No <Rosa Perdomo - Last Filed: 01/03/18 18:45> Vital Signs: Last Vital Signs Temp 98.1 F 01/04/18 07:40 Pulse 87 01/04/18 07:40 Resp 16 01/04/18 07:40 BP 113/71 01/04/18 07:40 Pulse Ox 100 01/04/18 07:40 Review Of Systems Constitutional: Negative for: Fever, Chills Cardiovascular: Negative for: Chest Pain Respiratory: Negative for: Shortness of Breath Gastrointestinal: Negative for: Nausea, Vomiting Psych: Negative for: Anxiety, Depression, Suicidal ideation <Rosa Perdomo - Last Filed: 01/03/18 18:45> Physical Exam - Physical Exam Appears: Non-toxic, No Acute Distress Skin: Warm, Dry, No Rash Head: Atraumatic, Normacephalic Eye(s): bilateral: Normal Inspection Oral Mucosa: Moist Neck: Normal ROM, Supple Cardiovascular: Rhythm Regular Respiratory: Normal Breath Sounds, No Accessory Muscle Use, No Rales, No Rhonchi , No Wheezing Gastrointestinal/Abdominal: Soft, No Tenderness, No Guarding, No Rebound Extremity: Normal ROM, Capillary Refill (<2 seconds) Neurological/Psych: Oriented x3, Normal Speech, Normal Cognition <Rosa Perdomo - Last Filed: 01/03/18 18:45> ED Course And Treatment - Laboratory Results Result Diagrams: 01/03/18 09:09 01/03/18 09:09 Lab Interpretation: No Acute Changes O2 Sat by Pulse Oximetry: 100 (RA) Pulse Ox Interpretation: Normal Progress Note: Blood work review and appears normal. Pt is medically cleared for PES evaluation at 10:00. At 10:35, pt was seen by corsis worker, case discussed with [id number] , recommend [facility] screening now. At 18:30, pt remained stable during the Ed Observation. Pt was sign out to for further OBS, await [facility] screener,dispo. <Rosa Perdomo - Last Filed: 01/03/18 18:45> - Laboratory Results Result Diagrams: 01/03/18 09:09 01/03/18 09:09 <Penny Means - Last Filed: 01/04/18 09:58> Progress <Rosa Perdomo - Last Filed: 01/03/18 18:45> <Penny Means - Last Filed: 01/04/18 09:58> - Re-Evaluation Re-evaluation Note: 01/04/18 09:58 D/W CRISIS: PT ACCEPTED FOR TRANSFER TO [facility]. PENDING BED AVAIL. (Penny Means) Disposition - Disposition Disposition Time: 18:44 <Rosa Perdomo - Last Filed: 01/03/18 18:45> <Penny Means - Last Filed: 01/04/18 09:58> - Disposition Condition: STABLE Forms: [facility] (German) - Clinical Impression Clinical Impression: Schizophrenia - PA / AUTO RENTAL CLERK / Resident Statement MD/DO has reviewed & agrees with the documentation as recorded. - Scribe Statement The provider has reviewed the documentation as recorded by the Scribe <Rosa Perdomo - Last Filed: 01/03/18 18:45> <Penny Means - Last Filed: 01/04/18 09:58> - Scribe Statement Lianna Lopez All medical record entries made by the Scribe were at my direction and personally dictated by me. I have reviewed the chart and agree that the record accurately reflects my personal performance of the history, physical exam, medical decision making, and the department course for this patient. I have also personally directed, reviewed, and agree with the discharge instructions and disposition. (Rosa Perdomo) Physician Patient Turnover Patient Signed Over To: Stephanie Morgan Handoff Comments: [facility] SCREENER, DAKOTA CABRERA <Rosa Perdomo - Last Filed: 01/03/18 18:45>
[2018-01-03 10:38] LABS: ALB/GLOB RATIO 1.2 (1.0-2.1); ALBUMIN 4.7 g/dL (3.5-5.0); ALT/SGPT 30 U/L (21-72); AST/SGOT 50 U/L (17-59); BLOOD UREA NITROGEN 12 mg/dL (9-20); CALCIUM 9.5 mg/dl (8.6-10.4); GFR AFRICAN-AMERICAN > 60; GFR NON-AFRICAN AMERICAN > 60
[2018-01-03 12:18] LABS: SQUAMOUS EPITHIAL < 1 /hpf (0-5); URINE AMORPHOUS SEDIMENT RARE /ul (<OCC); URINE BILIRUBIN NEGATIVE (NEGATIVE); URINE BLOOD NEGATIVE (NEGATIVE); URINE CLARITY Hazy (Clear); URINE COLOR Yellow (YELLOW); URINE GLUCOSE (UA) NORMAL (Normal); URINE LEUKOCYTE ESTERASE NEG Leu/uL (Negative); URINE PROTEIN NEGATIVE (NEGATIVE)
[2018-01-03 12:26] LABS: BARBITURATES, UR NEGATIVE (NEGATIVE); BENZODIAZEPINES, UR NEGATIVE (NEGATIVE); OPIATES, UR NEGATIVE (NEGATIVE); PHENCYCLIDINE, UR NEGATIVE (NEGATIVE)
[2018-01-04 11:14] VITALS: RESP 18; TEMP 98; O2SAT 98
--- NOTE | 2018-01-04 11:27 | PCM.PSYCH ---
Initial Psychiatric Evaluation - Initial Psychiatric Evaluation Type of Admission: Voluntary Legal Status: Capacity Chief Complaint (in patient's own words): I am fine.' History of Present Illness and Precipitating Events: Pt is a 22 yrs old HM, who lives with his mother, was presented in the ED with both EMS and Police with reports of patient acting bizarre, paranoid, disorganized and erratic. Pt according to collateral reports from his mother, Dr. Cintron and [facility] was recently discharged from both [facility] and [facility] for similar presenting symptoms. Pt was originally admitted voluntary to [facility] and while on the unit refused all medications and psychiatric interventions. Pt was screened on the unit and transferred to [facility] on December 20, 2017 as patient required a higher and more restrictive level of care not offered on a voluntary basis. Pt at time of contact was disorganized and could not respond to the evaluation inquiries in a logical manner; much of this assessment was completed with collateral information from mental health providers and patient's mother. Pt is severely decompensated, unpredictable and not able to function at his normal mental capacity. Pt furthermore is refusing contacts with his mother in the ED and has made disparaging remarks to both PES and ED staff. Past Psychiatric History - Past Psychiatric History Previous Treatment History: Inpatient Pertinent Medical Hx (Current Medical&Sleep Prob, Allergies): Allergies Allergy/AdvReac Type Severity Reaction Status Date / Time No Known Allergies Allergy Verified 12/01/17 02:30 Risperidone 3 mg PO BID 01/03/18 Review of Systems - Review of Systems All systems: reviewed and no additional remarkable complaints except - Psychiatric Psychiatric: Anxiety, Auditory Hallucinations, Mood Swings, Paranoia, Visual Hallucinations Mental Status Examination - Personal Presentation Personal Presentation: Looks stated age - Affect Affect: Broad - Motor Activity Motor Activity: Psychomotor Agitation - Reliability in Providing Information Reliability in Providing Information: Poor, due to alteration in thoughts, Poor , due to altered mood - Speech Speech: Disorganized - Mood Mood: Depressed, Anxious - Formal Thought Process Formal Thought Process: Hallucinations, Delusions, Paranoia, Loosening of associations, Flight of ideas - Hallucinations/Delusions Hallucinations: Auditory Delusions: Persecution - Obsessions/Compulsions Obsessions: No Compulsions: No - Cognitive Functions Orientation: Person, Place, Situation, Time Sensorium: Alert Attention/Concentration: Attentive Abstract Thinking: [place] Estimate of Intelligence: Below average Judgement: Imparied, as evidence by: Poor judgement, Imparied, as evidence by: Lack of insight into illness - Risk Risk: Suicidal, Homicidal, Diminished functioning - Strength & Assets Inventory Strength & Assets Inventory: Family support DSM 5 DX - DSM 5 DSM 5 Diagnosis: Schizoaffective disorder bipolar type - Recommended/Plan of Treatment Treatment Recommendations and Plan of Treatment: Schizoaffective disorder bipolar type Pt to be screened by the [facility]. for involuntary commitment. - Smoking Cessation Smoking Cessation Initiated: No
--- NOTE | 2018-01-04 11:44 | RAD ---
HISTORY: MED CLEAR COMPARISON: No prior. TECHNIQUE: Chest PA and lateral FINDINGS: LUNGS: No active pulmonary disease. PLEURA: No significant pleural effusion identified. No pneumothorax apparent. CARDIOVASCULAR: Normal. OSSEOUS STRUCTURES: No significant abnormalities. VISUALIZED UPPER ABDOMEN: Normal. OTHER FINDINGS: None. IMPRESSION: No focal airspace opacity.
[2018-01-04 12:55] VITALS: BP 116/69; PULSE 76
== END 2018-01-04 13:45 | disposition short-term general hospital (02) ==
LOC: C.ER 08:06
DX: F20.9 Schizophrenia, unspecified (principal)

== ENCOUNTER 2018-04-13 00:27 | Emergency (ER) | payer MEDICAID ==
[2018-04-13 00:27] VITALS: BMI 24.3
[2018-04-13] MEDS ORDERED: Glucagon Recombinant 1 mg Inj IM STA ×2 (01:25→02:32)
[2018-04-13] MEDS ORDERED: Glucagon Recombinant 1 mg Inj ONE ×2 (02:09→03:42)
[2018-04-13] MEDS ORDERED: Glucagon Recombinant 1 mg Inj SC STA (02:46)
--- NOTE | 2018-04-13 05:49 | C.PDOC ---
History Of Present Illness 22 year old male presents to the ER with a complaint of foreign body sensation to the throat after he accidentally swallowed a hot piece of boneless chicken meat. Patient states since then he has not been able to keep fluids down. Denies pain or SOB. Time Seen by Provider: 04/13/18 01:11 Chief Complaint (Nursing): ENT Problem History Per: Patient History/Exam Limitations: None Onset/Duration Of Symptoms: Hrs Current Symptoms Are (Timing): Still Present Quality (Mouth/Throat): Other (Foreign body sensation) Anticoagulant/Antiplatlet Use?: No Past Medical History Reviewed: Historical Data, Nursing Documentation, Vital Signs Vital Signs: Last Vital Signs Temp 98 F 04/13/18 01:01 Pulse 68 04/13/18 06:48 Resp 18 04/13/18 06:48 BP 116/62 04/13/18 06:48 Pulse Ox 100 04/13/18 06:48 - Medical History PMH: Schizophrenia ("as per previous triage") Surgical History: No Surg Hx Family History: States: No Known Family Hx - Social History Hx Alcohol Use: No Hx Substance Use: No - Immunization History Hx Tetanus Toxoid Vaccination: No Hx Influenza Vaccination: No Hx Pneumococcal Vaccination: No Review Of Systems ENT: Positive for: Other (Foreign body sensation to throat). Negative for: Throat Pain Respiratory: Negative for: Shortness of Breath, Wheezing Musculoskeletal: Negative for: Neck Pain Physical Exam - Physical Exam Appears: Non-toxic, Other (No respiratory distress) Skin: Normal Color, Warm, Dry Head: Atraumatic, Normacephalic Eye(s): bilateral: Normal Inspection Oral Mucosa: Moist Throat: Normal, No Erythema, No Exudate Neck: Normal, Supple, No Other (Swelling) Chest: Symmetrical, No Tenderness Cardiovascular: Rhythm Regular Respiratory: Normal Breath Sounds, No Rales, No Rhonchi, No Wheezing Neurological/Psych: Oriented x3, Normal Speech ED Course And Treatment O2 Sat by Pulse Oximetry: 96 (Room air) Pulse Ox Interpretation: Normal Progress Note: Glucagon administered x2, however, patient still has foreign body sensation and is unable to tolerate PO. Pending CT of soft tissue/neck. 7am: pt remains stable in no acute distress, pending CT results and dispositipn. Signed out to BENI Perdomo Reevaluation Time: 07:02 Disposition - Disposition Disposition Time: 06:57 Condition: SERIOUS Forms: [facility] (Romansh) - Clinical Impression Clinical Impression: Swallowed foreign body - PA / CITRIX ADMINISTRATOR / Resident Statement MD/DO has reviewed & agrees with the documentation as recorded. - Scribe Statement The provider has reviewed the documentation as recorded by the Scribe Wally Hong All medical record entries made by the Scribe were at my direction and personally dictated by me. I have reviewed the chart and agree that the record accurately reflects my personal performance of the history, physical exam, medical decision making, and the department course for this patient. I have also personally directed, reviewed, and agree with the discharge instructions and disposition. Physician Patient Turnover Patient Signed Over To: Rosa Perdomo Handoff Comments: pending neck CT results/consult or dispo as needed
[2018-04-13 08:24] VITALS: BP 131/78; PULSE 98; RESP 20; TEMP 99; O2SAT 99
--- NOTE | 2018-04-13 11:04 | CT ---
PROCEDURE: CT NECK WITHOUT CONTRAST HISTORY: Swallowed foreign body. Chicken me. COMPARISON: None. TECHNIQUE: CT of the neck without intravenous contrast. Coronal and sagittal reformats generated. Radiation dose: DLP 458.76 mGy-cm This CT exam was performed using one or more of the following dose reduction techniques: Automated exposure control, adjustment of the mA and/or kV according to patient size, and/or use of iterative reconstruction technique. FINDINGS: NASOPHARYNX: Unremarkable. SUPRAHYOID NECK: Unremarkable oropharynx, oral cavity, parapharyngeal space and retropharyngeal space. . There is asymmetry of the vallecula and likely due to some encroachment of lingual tonsil as well as some residual/retained secretion. Free margin of the epiglottis unremarkable. . There is also asymmetry of the aryepiglottic folds and pyriform sinuses left-side of which is not aerated also likely due to residual/retained secretion as well. Less likely a small focus of bolus of knee such is a chicken the as per history cannot be completely excluded. No evidence of radiopaque bony foreign bodies. Airway is midline and. No evidence of foreign bodies seen within the proximal esophagus. INFRAHYOID NECK: Unremarkable larynx, hypopharynx, and supraglottic space. Vocal cords intact. MASS: None. GLANDS: Parotid and submandibular glands unremarkable. Normal size thyroid gland, without nodule. LYMPH NODES: Normal. No lymphadenopathy. CERVICAL SPINE: No fracture or focal lesion. OTHER FINDINGS: None. IMPRESSION: No radiopaque bony foreign bodies are identified. There is mild asymmetry of the vallecula likely due to a some residual and or retained secretion and possibly some encroachment by lingual tonsils. There is also asymmetry of the aryepiglottic folds and pyriform sinuses right-side of which is aerated and left-side not aerated. This is also likely due to some residual/retained secretion in however the possibility of a small bolus of chicken knee as per history cannot be completely excluded though is less likely. . Follow-up of ENT and/or gastroenterology consultation may prudent if necessary. Note that this report was placed in PA review folder for followup.
== END 2018-04-13 08:29 | disposition home or self-care (01) ==
LOC: C.ER 00:27
DX: T18.9XXA Foreign body of alimentary tract, part unspecified, initial encounter (principal); X58.XXXA Exposure to other specified factors, initial encounter; F20.9 Schizophrenia, unspecified
CPT/HCPCS: 70490; 96372; 99284; J1610; J2765